=== PATIENT | female | born 1995 | race Hispanic/Latino ===

== ENCOUNTER 2021-04-18 23:12 | Inpatient (IN) | payer MEDICAID, OTHER, SELFPAY ==
[~2021-04-18 23:12] MED LIST: Bupivacaine 0.25% HCL 30 ML VIAL ONE
[2021-04-18 23:36] VITALS: BMI 39.9
[2021-04-18] MEDS ORDERED: hydrALAZINE 20 MG/ML VIAL SLOW IVP PRN (23:57)
[2021-04-19] MEDS ORDERED: Lidocaine 1% (PF) 30 ML VIAL SC PRN (01:50)
[2021-04-19] MEDS ORDERED: Butorphanol Tartrate 1 MG/ML VIAL SLOW IVP PRN (01:50)
[2021-04-19] MEDS ORDERED: Ondansetron PF 4 MG/2 ML Vial IVP PRN ×3 (01:50→10:24)
[2021-04-19] MEDS ORDERED: Promethazine HCl 25 MG/ML VIAL IM PRN ×3 (01:50→10:24)
[2021-04-19] MEDS ORDERED: Ibuprofen 800 MG TAB PO PRN (01:50)
[2021-04-19] MEDS ORDERED: hydrALAZINE 20 MG/ML VIAL SLOW IVP PRN ×2 (01:50→15:05)
[2021-04-19] MEDS ORDERED: HYDROcodone/Acetaminophen 5/325 mg Tablet PO PRN ×2 (01:50)
[2021-04-19] MEDS ORDERED: Zolpidem Tartrate 5 MG TAB PO PRN (01:50)
[2021-04-19] MEDS: Lactated Ringer's 1,000 ML IV SCH ×2 (02:00→07:45)
[2021-04-19] MEDS ORDERED: Lactated Ringer's 1,000 ML IV SCH (02:00)
[2021-04-19] MEDS ORDERED: NS w/ Oxytocin 30 units 500 ML IV SCH ×2 (02:00)
[2021-04-19 02:40] LABS: Hemoglobin 11.4 g/dL (12.0-15.5); Mean Corpuscular HGB CONC 32.1 g/dL (32.0-36.0); Mean Corpuscular Hemoglobin 26.8 pg (27.0-33.0); Mean Corpuscular Volume 83.5 fl (81.6-98.3); Mean Platelet Volume 12.3 fl (7.4-10.4); Platelet Count 166 10x3/uL (150-450); RBC Distribution Width 13.8 % (11.5-14.5); Red Blood Cell (RBC) Count 4.25 10x6/uL (3.90-5.03)
[2021-04-19 03:14] LABS: Syphilis Antibody Nonreactive (Nonreactive); Syphilis Antibody Index 0.04 S/CO (<1.00 Non-Reactive)
[2021-04-19 03:15] LABS: Hep B Surf Ag Non-Reactive S/CO (NonReactive)
[2021-04-19 03:41] LABS: HBSAg Index 0.17 S/CO (0-0.99)
[2021-04-19] MEDS ORDERED: Fentanyl 2 mcg/Bup 0.1% Cadd 100 ML ONE (07:39)
[2021-04-19 07:43] LABS: SARS-CoV-2 NAA Rapid Test Not Detected (NotDetected)
[2021-04-19] MEDS ORDERED: Lactated Ringer's 500 ML IV PRN ×2 (09:28→10:24)
[2021-04-19] MEDS ORDERED: ePHEDrine Sulfate 50 MG/10 ML VIAL SLOW IVP PRN ×2 (09:28→10:24)
[2021-04-19] MEDS ORDERED: diphenhydrAMINE 50 MG/ML VIAL IVP PRN ×2 (09:28→10:24)
[2021-04-19] MEDS ORDERED: Acetaminophen 325 MG TAB PO PRN ×2 (09:28→10:24)
[2021-04-19] MEDS ORDERED: Naloxone HCl 0.4 mg/ml Vial IVP PRN ×4 (09:28→10:24)
[2021-04-19] MEDS ORDERED: Hydrocerin (Eucerin) Cream 120 gm Jar TOP PRN ×2 (09:28→10:24)
[2021-04-19] MEDS ORDERED: Communication Order-Pharmacy FS SCH ×2 (09:30→10:30)
[2021-04-19] MEDS ORDERED: Fentanyl 2 mcg/Bupivacaine 0.1% Cassette 100 ML EPIDURAL SCH (09:30)
[2021-04-19] MEDS ORDERED: Milk Of Magnesia 30 ML UDCUP PO PRN (15:05)
[2021-04-19] MEDS ORDERED: Lanolin Ointment 7 GM TUBE TOP PRN (15:05)
[2021-04-19] MEDS ORDERED: Boostrix 0.5 ML (Tdap) VIAL IM ONE (15:05)
[2021-04-19] MEDS ORDERED: Bisacodyl 10 MG SUPP PR PRN (15:05)
[2021-04-19] MEDS: HYDROcodone/Acetaminophen 5/325 mg Tablet PO PRN (16:19)
[2021-04-19] MEDS: Ibuprofen 800 MG TAB PO SCH (20:34)
[2021-04-19] MEDS: Docusate Calcium (SURFAK) 240 MG CAP PO SCH (20:34)
[2021-04-20] MEDS: Ferrous Sulfate 325 MG TAB PO SCH ×2 (03:50→07:35)
[2021-04-20] MEDS: Ibuprofen 800 MG TAB PO SCH (06:04)
[2021-04-20 07:41] VITALS: TEMP 98.2
[2021-04-20] MEDS: Docusate Calcium (SURFAK) 240 MG CAP PO SCH (07:46)
[2021-04-20] MEDS: HYDROcodone/Acetaminophen 5/325 mg Tablet PO PRN (07:47)
[2021-04-20 11:30] VITALS: BP 122/79
== END 2021-04-20 12:50 | disposition home or self-care (01) | DRG 807 ==
LOC: CSHLD/OP 23:12 → CSHLD 04-19 02:11 → CSHPP 04-19 14:43
PROVIDERS: ADMIT Family Medicine; ATTEND Family Medicine
PROC: 10E0XZZ Delivery of Products of Conception, External Approach (ICD-10-PCS; principal; 2021-04-19)
PROC: 10907ZC Drainage of Amniotic Fluid, Therapeutic from Products of Conception, Via Natural or Artificial Opening (ICD-10-PCS; 2021-04-19)
PROC: 3E033VJ Introduction of Other Hormone into Peripheral Vein, Percutaneous Approach (ICD-10-PCS; 2021-04-19)
DX: O24.415 Gestational diabetes mellitus in pregnancy, controlled by oral hypoglycemic drugs (principal); Z37.0 Single live birth; Z3A.38 38 weeks gestation of pregnancy; Z20.822 Contact with and (suspected) exposure to COVID-19; Z79.82 Long term (current) use of aspirin; Z79.84 Long term (current) use of oral hypoglycemic drugs
CPT/HCPCS: 36416; 51702; 85027; 86780; 86850; 86900; 86901; 87340; 99285; J2590; J7120; S0020; U0002

== ENCOUNTER 2022-03-26 16:40 | Emergency (ER) | payer MEDICAID, SELFPAY ==
[2022-03-26] MEDS ORDERED: Amoxicillin/Potassium Clav 875 MG TAB ONE (17:54)
== END 2022-03-26 17:54 | disposition home or self-care (01) ==
LOC: CSHERS 16:40
DX: H60.11 Cellulitis of right external ear (principal)
CPT/HCPCS: 99283